=== PATIENT | female | born 1995 | race Caucasian/White ===

== ENCOUNTER 2018-05-05 13:16 | Emergency (ER) | payer BC ==
--- NOTE | 2018-05-05 13:38 | EDPHY ---
H & P Stated Complaint: R ankle inj -tripped down 3 steps Time Seen by Provider: 05/05/18 13:25 HPI/ROS: CHIEF COMPLAINT: Right ankle pain HISTORY OF PRESENT ILLNESS: 22-year-old female presents with right ankle pain. She was walking down some stairs, tripped and twisted her ankle. Immediate onset of moderate ankle pain and gradually increasing swelling. The pain is moderate and increases with ambulation. No other injuries. No numbness or weakness. - Personal History LMP (Females 10-55): 22-28 Days Ago - Medical/Surgical History Hx Asthma: No Hx Chronic Respiratory Disease: No Hx Diabetes: No Hx Cardiac Disease: No Hx Renal Disease: No Hx Cirrhosis: No Hx Alcoholism: No Hx HIV/AIDS: No Hx Splenectomy or Spleen Trauma: No Other PMH: gerd - Social History Smoking Status: Never smoked - Physical Exam Exam: Alert, pleasant Extremities: Right ankle with swelling over the lateral malleolus. There is no posterior lateral malleolus tenderness, midfoot tenderness, or proximal fifth metatarsal tenderness. The ankle is stable and the Achilles tendon is intact. Vascular: Pedal pulses 2+ Neurologic: Ankle and foot with normal sensation and strength Skin: Intact Constitutional: Initial Vital Signs Temperature (C) 36.7 C 05/05/18 13:22 Heart Rate 78 05/05/18 13:22 Respiratory Rate 16 05/05/18 13:22 Blood Pressure 117/76 05/05/18 13:22 O2 Sat (%) 98 05/05/18 13:22 O2 Delivery Mode Room Air Allergies/Adverse Reactions: No Known Allergies Allergy (Verified 05/05/18 13:21) Home Medications: Medication Instructions Recorded Amoxicillin 05/05/18 Protonix 05/05/18 Medical Decision Making - Diagnostics Imaging Results: X-ray independently reviewed by me reveals no acute fracture. ED Course/Re-evaluation: This patient presents with an ankle sprain. She was placed in a Velcro stirrup splint and crutches dispensed. Departure - Departure Disposition: Home, Routine, Self-Care Clinical Impression: Right ankle sprain Qualifiers: Encounter type: initial encounter Involved ligament of ankle: anterior talofibular ligament Qualified Code(s): S93.491A - Sprain of other ligament of right ankle, initial encounter Condition: Good Instructions: Ankle Sprain (ED), Crutch Instructions (ED), Ankle Stirrup Splint (ED) Additional Instructions: Take Tylenol 650 mg every 4 hours and/or Ibuprofen 600 mg every 8 hours with food as needed for pain. Apply ice for 30 minutes at a time; 2-3 times per day for the next 1-2 days. Follow up with Orthopedics in 2-4 weeks if symptoms persist or worsening at which time they will evaluate and recommend with you if conservative management versus adjuvant therapy like further imaging is indicated. The x-rays obtained in the emergency department today demonstrate no evidence of an obvious fracture. Referrals: Yves Vicente MD [Medical Doctor] - As per Instructions Stand Alone Forms: Work Limited Duty
[2018-05-05 14:56] VITALS: BP 113/72
== END 2018-05-05 15:03 | disposition home or self-care (01) ==
DX: S93.491A Sprain of other ligament of right ankle, initial encounter (principal); W10.8XXA Fall (on) (from) other stairs and steps, initial encounter; Y92.9 Unspecified place or not applicable